=== PATIENT | male | born 1980 | race Caucasian/White ===

== ENCOUNTER 2018-10-26 12:46 | Inpatient (IN) | payer BC ==
[~2018-10-26] VITALS: Ht 180.3 cm; Wt 112.9 kg
[2018-10-26] VITALS (11 sets, daily range): BP systolic 128–177; BP diastolic 72–93
--- NOTE | 2018-10-26 13:00 | NUR ---
CAME FROM DR LUNA OFFICE FOR EVAL OF HIS RECTAL ABSCESS. IV STARTED BLOOD SEND TO LAB
[2018-10-26] MEDS ORDERED: Isovue-300 100ml vial INJ PRN (13:15)
[2018-10-26] MEDS ORDERED: Piperacillin/Tazobactam 3.375 GM in NS 110 ML IVPB ONE (13:15)
--- NOTE | 2018-10-26 13:59 | Pre-Procedure Note/Attestation ---
Pre-Procedure Note/Attestation Complete Prior to Procedure Procedure Narrative: Examination Under Anesthesia, incision and drainage of jose maria-rectal abscess, possible drain placement. Indications for Procedure Pre-Operative Diagnosis: jose maria-rectal abscess Attestation I attest that I discussed the nature of the procedure; its benefits; risks and complications; and alternatives (and the risks and benefits of such alternatives ), prior to the procedure, with the patient (or the patient's legal loan servicing representative). I attest that, if there was a reasonable possibility of needing a blood transfusion, the patient (or the patient's legal loan servicing representative) was given the [facility] standardized written summary, pursuant to the Christophe Carol Blood Safety Act ([place] Health and Safety Code # 1645, as amended). I attest that I re-evaluated the patient just prior to the surgery and that there has been no change in the patient's H&P, except as documented below: Reynaldo Samano October 26, 2018 13:59
--- NOTE | 2018-10-26 13:59 | Consultation ---
History of Present Illness General Date patient seen: October 26, 2018 Reason for Hospitalization: Skin Rash/Abscess Present Illness HPI 37 year old otherwise healthy male who is well known to me presented with recurrent magy-anal abscess. Patient first seem in Dr. Pedro's office last year for magy-rectal abscess s/p Incision and drainage. Did well and wound was cared for by myself until healed. Has since been okay until 5-6 days ago when began to have similar symptoms. Chicken magy-anal discomfort, noted some drainage , noted discomfort, and mild blood after BM. Waited a few days and as did not improve came in for evaluation. Seen in office today and when noted to be uncomfortable and with duration and size and location recommended to come to ED. No n/v/f/c. pain sharp and worsening. on exam had tenderness and deep fluctuance. Allergies: Coded Allergies: No Known Allergies (Unverified , 10/26/18) Patient History Healthcare decision maker Resuscitation status Advanced Directive on File Review of Systems Review of Symptoms General ROS: no weight loss or fever Psychological ROS: no depression or mood changes, no memory loss Ophthalmic ROS: no visual changes or eye irritation ENT ROS: no nasal congestion, hearing loss, dizziness Allergy and Immunology ROS: no allergic symptoms or urticaria Hematological and Lymphatic ROS: no swollen glands, unusual bleeding or bruising Endocrine ROS: no polyuria, polydipsia, weight changes, temperature intolerance Respiratory ROS: no cough, shortness of breath, or wheezing Cardiovascular ROS: no chest pain or dyspnea on exertion Gastrointestinal ROS: denies abdominal pain, bright red blood in stool. Musculoskeletal ROS: no myalgias or arthralgias Neurological ROS: no TIA or stroke symptoms Dermatological ROS: no new or changing skin lesions, rashes or pruritis Physical Exam Physical Exam General appearance: alert, cooperative, no distress, appears stated age Head: Normocephalic, without obvious abnormality, atraumatic Eyes: conjunctivae/corneas clear. PERRL, EOM's intact. Fundi benign Throat: Lips, mucosa, and tongue normal. Teeth and gums normal Neck: supple, symmetrical, trachea midline, no adenopathy, thyroid: not enlarged, symmetric, no tenderness/mass/nodules, no carotid bruit and no JVD Lungs: clear to auscultation bilaterally Heart: regular rate and rhythm, S1, S2 normal, no murmur, click, rub or gallop Abdomen: soft, non-tender. Bowel sounds normal. No masses, no organomegaly Extremities: extremities normal, atraumatic, no cyanosis or edema Pulses: 2+ and symmetric Skin: Skin color, texture, turgor normal. No rashes or lesions Neurologic: Grossly normal RECTAL: anoscopy performed and pain noted but no blood noted. left magy-rectal area with well healed prior scar noted. fluctuance, no drainage, tender, much larger then prior. Last 24 Hour Vital Signs Date Time Temp Pulse Resp B/P (MAP) Pulse Ox O2 Delivery O2 Flow Rate FiO2 10/26/18 12:52 98.1 78 16 98 Room Air Height (Feet): 6 Weight (Pounds): 195 Medications Current Medications Medications (Trade) Dose Ordered Sig/Juan Route PRN Reason Start Time Stop Time Status Last Admin Dose Admin Iopamidol (Isovue-300 100ml) 100 ml NOW PRN INJ Radiology Procedure 10/26/18 13:15 Sodium Chloride 1,000 ml @ 999 mls/hr Q1H1M IV 10/26/18 13:02 10/26/18 14:02 Assessment/Plan Problem List: (1) Magy-rectal abscess Assessment & Plan: 37M with magy-rectal abscess. afebrile, HD stable. labs pending need CT to ensure not deeper or other abnormality as this is second one in a year in same location but no fistula noted externally. larger then prior. unable to do in office given limitations and complexity. leukocytosis ct w/ Left perianal abscess measuring approximately 2.5 x 1.7 x 3 cm. Underlying fistulous connection likely. admit for IV Abx OR today for I&D after imaging completed consent thank you ICD Codes: K61.1 - Rectal abscess SNOMED: [id number] MtmarieReynaldo October 26, 2018 13:59
[2018-10-26 14:23] LABS: BASOPHILS % (AUTO) 0.4 % (0.0-2.0); EOSINOPHILS % (AUTO) 1.4 % (0.0-3.0); HEMATOCRIT 46.9 % (42.0-52.0); HEMOGLOBIN 15.5 G/DL (14.2-18.0); LYMPHOCYTES % (AUTO) 12.7 % (20.0-45.0); MEAN CORPUSCULAR VOLUME 89 FL (80-99); MONOCYTES % (AUTO) 6.8 % (1.0-10.0); NEUTROPHILS % (AUTO) 78.7 % (45.0-75.0); PLATELET COUNT 283 K/UL (150-450); RED BLOOD COUNT 5.28 M/UL (4.70-6.10); RED CELL DISTRIBUTION WIDTH 12.8 % (11.6-14.8); WHITE BLOOD COUNT 17.7 K/UL (4.8-10.8)
--- NOTE | 2018-10-26 14:24 | Diagnostic Imaging Report ---
Indication: Chest pain. Technique: XRAY Chest 1v Comparison: None Findings: Heart size and mediastinal contours are within normal limits for AP technique. Symmetric haziness of portions of the lower lungs bilaterally related to attenuation from overlying soft tissues. There is no focal airspace consolidation, pneumothorax or pleural effusion. Osseous structures demonstrate no acute abnormality. Impression: No radiographic evidence of acute cardiopulmonary disease.
[2018-10-26] MEDS ORDERED: Morphine Sulfate 4mg/ml Inj (IV USE ONLY) IVP ONE (14:30)
--- NOTE | 2018-10-26 14:30 | Emergency Room Report ---
History of Present Illness General Chief Complaint: Skin Rash/Abscess Source: Patient Present Illness HPI 37-year-old male presents ED for evaluation. Patient referred to ED for rectal pain. History of perirectal abscess and has had surgery previously. States he' s having recurrent pain and drainage from that site x 1 week. Pain is throbbing , 8 out of 10, nonradiating. Denies fevers or chills. No other aggravating relieving factors. Denies any other associated symptoms Allergies: Coded Allergies: No Known Allergies (Unverified , 10/26/18) Patient History Past Medical History: none Past Surgical History: none Pertinent Family History: none Social History: Denies: smoking, alcohol use, drug use Immunizations: UTD Reviewed Nursing Documentation: PMH: Agreed; PSxH: Agreed Review of Systems All Other Systems: negative except mentioned in HPI Physical Exam Vital Signs Date Time Temp Pulse Resp B/P (MAP) Pulse Ox O2 Delivery O2 Flow Rate FiO2 10/26/18 12:52 98.1 78 16 98 Room Air 10/26/18 14:17 130/80 Sp02 EP Interpretation: reviewed, normal General Appearance: no apparent distress, alert, GCS 15, non-toxic Head: normocephalic, atraumatic Eyes: bilateral eye normal inspection, bilateral eye PERRL ENT: hearing grossly normal, normal pharynx, no angioedema, normal voice Neck: full range of motion, supple/symm/no masses Respiratory: chest non-tender, lungs clear, normal breath sounds, speaking full sentences Cardiovascular #1: regular rate, rhythm, no edema Cardiovascular #2: 2+ carotid (R), 2+ carotid (L), 2+ radial (R), 2+ radial (L) , 2+ dorsalis pedis (R), 2+ dorsalis pedis (L) Gastrointestinal: normal bowel sounds, non tender, soft, non-distended, no guarding, no rebound Rectal: tenderness - erythema/induration L perirectal area. no fluctuance or discharge Genitourinary: normal inspection, no CVA tenderness Musculoskeletal: back normal, gait/station normal, normal range of motion, non- tender Neurologic: alert, oriented x3, responsive, motor strength/tone normal, sensory intact, speech normal Psychiatric: judgement/insight normal, memory normal, mood/affect normal, no suicidal/homicidal ideation Reflexes: 3+ bicep (R), 3+ bicep (L), 3+ tricep (R), 3+ tricep (L), 3+ knee (R) , 3+ knee (L) Skin: normal color, no rash, warm/dry, well hydrated Lymphatic: no adenopathy Medical Decision Making Diagnostic Impression: Primary Impression: Magy-rectal abscess ER Course Hospital Course 37 yo M presents to ED with fluctuance/paint to rectal area Differential diagnoses include: cellulitis, abscess, fistula Clinical course Patient placed on stretcher. conveyor monitor. After initial history and physical I ordered labs, IV fluids, UA, pain medication and CT scan Labs - noted leukocytosis, Hb/Hct ok, electrolytes ok EKG - NSR, no acute ischemic changeds interpreted by me CXR unremarkable CT abdomen and pelvis - L perirectal abscess noted Dr. Samano made aware of results; preoperative abx given patient made nothing by mouth and patient will be taken to OR Case discussed with Dr. Brand and he agreed to accept the patient to his service for further care and support I feel this is a highly complex case requiring extensive working including EKG/ Rhythm strip, Xray/CT/US, Blood/urine lab work, repeat exams while in ED, and administration of strong opiates/narcotics for pain control, admission to hospital or close patient follow up. Diagnosis - perirectal abscess Patient admitted to floor in serious condition Labs Test 10/26/18 13:40 10/27/18 05:33 Prothrombin Time 10.4 SEC (9.30-11.50) Prothromb Time International Ratio 1.0 (0.9-1.1) Activated Partial Thromboplast Time 32 SEC (23-33) Lactic Acid Level 1.00 mmol/L (0.4-2.0) Total Bilirubin 0.6 MG/DL (0.2-1.0) Aspartate Amino Transf (AST/SGOT) 24 U/L (15-37) Alanine Aminotransferase (ALT/SGPT) 21 U/L (12-78) Alkaline Phosphatase 46 U/L (46-116) Total Protein 7.8 G/DL (6.4-8.2) Albumin 3.9 G/DL (3.4-5.0) Globulin 3.9 g/dL Albumin/Globulin Ratio 1.0 (1.0-2.7) White Blood Count 13.6 K/UL (4.8-10.8) Red Blood Count 5.15 M/UL (4.70-6.10) Hemoglobin 15.3 G/DL (14.2-18.0) Hematocrit 45.9 % (42.0-52.0) Mean Corpuscular Volume 89 FL (80-99) Mean Corpuscular Hemoglobin 29.7 PG (27.0-31.0) Mean Corpuscular Hemoglobin Concent 33.3 G/DL (32.0-36.0) Red Cell Distribution Width 13.0 % (11.6-14.8) Platelet Count 263 K/UL (150-450) Mean Platelet Volume 8.1 FL (6.5-10.1) Neutrophils (%) (Auto) 81.4 % (45.0-75.0) Lymphocytes (%) (Auto) 10.6 % (20.0-45.0) Monocytes (%) (Auto) 6.3 % (1.0-10.0) Eosinophils (%) (Auto) 1.4 % (0.0-3.0) Basophils (%) (Auto) 0.3 % (0.0-2.0) Sodium Level 135 MMOL/L (136-145) Potassium Level 4.2 MMOL/L (3.5-5.1) Chloride Level 101 MMOL/L (98-107) Carbon Dioxide Level 25 MMOL/L (21-32) Anion Gap 9 mmol/L (5-15) Blood Urea Nitrogen 7 mg/dL (7-18) Creatinine 0.9 MG/DL (0.55-1.30) Estimat Glomerular Filtration Rate > 60 mL/min (>60) Glucose Level 73 MG/DL (74-106) Calcium Level 8.6 MG/DL (8.5-10.1) EKG Diagnostic Results Rate: normal Rhythm: NSR ST Segments: no acute changes ASA given to the pt in ED: No Rhythm Strip Diag. Results EP Interpretation: yes Rhythm: NSR, no PVC's Chest X-Ray Diagnostic Results Chest X-Ray Diagnostic Results : Chest X-Ray Ordered: Yes # of Views/Limited/Complete: 1 View Indication: Other EP Interpretation: Yes Interpretation: no consolidation, no effusion, no pneumothorax, no acute cardiopulmonary disease Impression: No acute disease Electronically Signed by: Electronically signed by Joseph Simms MD CT/MRI/US Diagnostic Results CT/MRI/US Diagnostic Results : Imaging Test Ordered: CT A/P Impression Left perianal abscess measuring approximately 2.5 x 1.7 x 3 cm. Underlying fistulous connection likely. Last Vital Signs Date Time Temp Pulse Resp B/P (MAP) Pulse Ox O2 Delivery O2 Flow Rate FiO2 10/26/18 14:17 98.0 82 18 130/80 98 Room Air Status: improved Disposition: ADMITTED INPATIENT Condition: Serious Scripts No Active Prescriptions or Reported Meds Referrals: Hakan Pedro MD (PCP) Joseph Simms MD October 26, 2018 14:30
[2018-10-26 14:34] LABS: ANION GAP 9 mmol/L (5-15); BLOOD UREA NITROGEN 11 mg/dL (7-18); CALCIUM 9.1 MG/DL (8.5-10.1); CARBON DIOXIDE 27 MMOL/L (21-32); CHLORIDE 101 MMOL/L (98-107); CREATININE 1.1 MG/DL (0.55-1.30); POTASSIUM 3.8 MMOL/L (3.5-5.1); SODIUM 137 MMOL/L (136-145)
[2018-10-26 14:38] LABS: ALANINE AMINOTRANSFERASE 21 U/L (12-78); ALBUMIN 3.9 G/DL (3.4-5.0); ALKALINE PHOSPHATASE 46 U/L (46-116); ASPARTATE AMINO TRANSFERASE 24 U/L (15-37); BILIRUBIN,TOTAL 0.6 MG/DL (0.2-1.0)
--- NOTE | 2018-10-26 14:52 | NUR ---
PAIN MEDS GIVEN TO CT SCAN VIA GURTRACY
--- NOTE | 2018-10-26 15:24 | Diagnostic Imaging Report ---
Indication: Abdominal pain Technique: CT of the abdomen and pelvis utilizing automated exposure control with intravenous contrast. Venous scanning performed. Axial, sagittal and coronal reformats presented. CT dose: Total DLP 1048.28 mGycm; CTDI vol 18.16 mGy Comparison: None Findings: Minimal dependent atelectatic changes noted in the posterior lower lobes bilaterally. Heart size within normal limits. There is no pericardial effusion. Liver is mildly enlarged with the right hepatic lobe measuring 20 cm in crown correlate. Hepatic contour is smooth. No focal hepatic mass lesion is appreciated on this single phase exam. Hepatic veins and portal veins appear patent. Gallbladder is unremarkable, without CT evident gallstones or pericholecystic inflammatory changes. No biliary ductal dilatation. Spleen is mildly enlarged measuring 13 cm in length. Adrenal glands and pancreas unremarkable. Kidneys enhance symmetrically. A punctate nonobstructing stone is noted in the midpole of the right kidney (series 3 image #38). There is no hydronephrosis or perinephric stranding bilaterally. Bladder is unremarkable. Seminal vesicles and prostate unremarkable. There is no free intraperitoneal air. No free peritoneal fluid is identified. There is no evidence of bowel obstruction. No definite inflammatory changes noted within the mesentery. No evidence of appendicitis. Abdominal aorta is normal in caliber. There is skin thickening of the left gluteal cleft. There is subcutaneous stranding. There is also a left perianal abscess that measures approximately 2.5 cm AP by 1.7 cm transverse and approximately 3 cm craniocaudal. This contains some foci of air. There is suggestion of underlying fistulous connection (series 5 image #40). No acute osseous abnormality is identified. IMPRESSION: Left perianal abscess measuring approximately 2.5 x 1.7 x 3 cm. Underlying fistulous connection likely. Punctate subcentimeter stone in the midpole of the right kidney. No evidence of hydronephrosis or other evidence to suggest obstructive uropathy. Mild hepatosplenomegaly. The CT scanner at [facility] is accredited by the [employer] and the scans are performed using protocols designed to limit radiation exposure to as low as reasonably achievable to attain images of sufficient resolution adequate for diagnostic evaluation.
--- NOTE | 2018-10-26 16:15 | NUR ---
ED Nurse Note: ivf and pain meds well tolerated pre-op chaeck list belongings list done. pt down to OR via transporter.
[2018-10-26] MEDS ORDERED: LR 1000ml 1,000 ML IVLG SCH (17:20)
--- NOTE | 2018-10-26 17:26 | Anethesia Preoperative Eval ---
Anesthesia Pre-op PMH/ROS General Date of Evaluation: October 26, 2018 Time of Evaluation: 17:27 Anesthesiologist: Isidro ASA Score: ASA 2 Mallampati Score Class I : Soft palate, uvula, fauces, pillars visible Class II: Soft palate, uvula, fauces visible Class III: Soft palate, base of uvula visible Class IV: Only hard plate visible Mallampati Classification: Class II Surgeon: Selwyn Diagnosis: Rectal Abscess Surgical Procedure: I&D Rectal Abscess Anesthesia History: none Family History: no anesthesia problems Allergies: Coded Allergies: No Known Allergies (Unverified , 10/26/18) Medications: see eMAR Patient NPO?: Yes Past Medical History Cardiovascular: Reports: HTN Other: obesity - BMI 35 Anesthesia Pre-op Phys. Exam Physician Exam Last Vital Signs Date Time Temp Pulse Resp B/P (MAP) Pulse Ox O2 Delivery O2 Flow Rate FiO2 10/26/18 16:20 98.0 10/26/18 16:16 78 18 128/76 99 Room Air Constitutional: NAD Neurologic: CN 2-12 intact Cardiovascular: RRR Respiratory: CTA Gastrointestinal: S/NT/ND Airway Exam Mallampati Score: Class II MO: full ROM: full Teeth: intact Anesthesia Pre-op A/P Labs Hematology Test 10/26/18 13:40 White Blood Count 17.7 K/UL (4.8-10.8) H Red Blood Count 5.28 M/UL (4.70-6.10) Hemoglobin 15.5 G/DL (14.2-18.0) Hematocrit 46.9 % (42.0-52.0) Mean Corpuscular Volume 89 FL (80-99) Mean Corpuscular Hemoglobin 29.4 PG (27.0-31.0) Mean Corpuscular Hemoglobin Concent 33.1 G/DL (32.0-36.0) Red Cell Distribution Width 12.8 % (11.6-14.8) Platelet Count 283 K/UL (150-450) Mean Platelet Volume 8.0 FL (6.5-10.1) Neutrophils (%) (Auto) 78.7 % (45.0-75.0) H Lymphocytes (%) (Auto) 12.7 % (20.0-45.0) L Monocytes (%) (Auto) 6.8 % (1.0-10.0) Eosinophils (%) (Auto) 1.4 % (0.0-3.0) Basophils (%) (Auto) 0.4 % (0.0-2.0) Coagulation Test 10/26/18 13:40 Prothrombin Time 10.4 SEC (9.30-11.50) Prothromb Time International Ratio 1.0 (0.9-1.1) Activated Partial Thromboplast Time 32 SEC (23-33) Chemistry Test 10/26/18 13:40 Sodium Level 137 MMOL/L (136-145) Potassium Level 3.8 MMOL/L (3.5-5.1) Chloride Level 101 MMOL/L (98-107) Carbon Dioxide Level 27 MMOL/L (21-32) Anion Gap 9 mmol/L (5-15) Blood Urea Nitrogen 11 mg/dL (7-18) Creatinine 1.1 MG/DL (0.55-1.30) Estimat Glomerular Filtration Rate > 60 mL/min (>60) Glucose Level 81 MG/DL (74-106) Lactic Acid Level 1.00 mmol/L (0.4-2.0) Calcium Level 9.1 MG/DL (8.5-10.1) Total Bilirubin 0.6 MG/DL (0.2-1.0) Aspartate Amino Transf (AST/SGOT) 24 U/L (15-37) Alanine Aminotransferase (ALT/SGPT) 21 U/L (12-78) Alkaline Phosphatase 46 U/L (46-116) Total Protein 7.8 G/DL (6.4-8.2) Albumin 3.9 G/DL (3.4-5.0) Globulin 3.9 g/dL Albumin/Globulin Ratio 1.0 (1.0-2.7) Risk Assessment & Plan Assessment: ASA 2 Plan: GA Status Change Before Surgery: No Pre-Antibiotics Drug: Given Imer Felix MD October 26, 2018 17:26
[2018-10-26] MEDS ORDERED: LR 1000ml ONE (17:30)
[2018-10-26] MEDS ORDERED: fentaNYL 100 mcg/2 mL IV PRN (17:30)
[2018-10-26] MEDS ORDERED: LORazepam Inj 2mg/ml 1ml IV PRN (17:30)
[2018-10-26] MEDS ORDERED: Metoclopramide 10mg/2ml Inj IVP PRN (17:30)
[2018-10-26] MEDS ORDERED: Atropine Sulfate 0.4mg/ml inj IVP PRN (17:30)
[2018-10-26] MEDS ORDERED: Lidocaine 1% MPF 10mg/ml 5ml ONE ×2 (17:30→18:05)
[2018-10-26] MEDS ORDERED: Meperidine 50mg/ml Inj(FOR RIGORS ONLY) IVP PRN (17:30)
[2018-10-26] MEDS ORDERED: Midazolam 2mg/2ml Inj IVP PRN (17:30)
[2018-10-26] MEDS ORDERED: HYDROcodone/Acetamin 5/325 tab ORAL PRN (17:30)
[2018-10-26] MEDS ORDERED: Hydromorphone 0.5mg/0.5ml inj IVP PRN ×2 (17:30→18:30)
[2018-10-26] MEDS ORDERED: Acetaminophen (Non formulary) 100 ML IV ONE (17:30)
[2018-10-26] MEDS ORDERED: Labetalol 5mg/ml 20ml vial IV PRN (17:30)
[2018-10-26] MEDS ORDERED: DiphenhydrAMINE 50mg/ml Inj IVP PRN (17:30)
[2018-10-26] MEDS ORDERED: Ketorolac 30mg Inj IV PRN ×3 (17:30→18:30)
[2018-10-26] MEDS ORDERED: HYDROcodone/Acetamin 7.5/325 tab ORAL PRN (17:30)
[2018-10-26] MEDS ORDERED: oxyCODONE HCL/Acetaminophen 5/325mg ORAL PRN (17:30)
[2018-10-26] MEDS ORDERED: Sodium Chloride 10ml vial INJ ONE (17:38)
[2018-10-26] MEDS ORDERED: Hydrogen Peroxide 473ml Bottle TOPIC ONE (17:50)
--- NOTE | 2018-10-26 17:55 | Immediate Post-Op Evaluation ---
Immediate Post-Op Evalulation Immediate Post-Op Evalulation Procedure: I&D Rectal Abscess Date of Evaluation: October 26, 2018 Time of Evaluation: 18:37 IV Fluids: 800 LR Blood Products: 0 Estimated Blood Loss: 25 Urinary Output: 0 Blood Pressure Systolic: 143 Blood Pressure Diastolic: 78 Pulse Rate: 102 Respiratory Rate: 16 O2 Sat by Pulse Oximetry: 100 Temperature (Fahrenheit): 98.2 Pain Score (1-10): 2 Nausea: No Vomiting: No Complications 0 Patient Status: awake, reacts, patent, none Hydration Status: adequate Drug: Given Imer Felix MD October 26, 2018 17:55
[2018-10-26] MEDS ORDERED: Propofol 200mg/20ml IV ONE (18:05)
--- NOTE | 2018-10-26 18:23 | Brief Operative Note ---
Immediate Post Operative Note Operative Note Pre-op Diagnosis: jose maria-rectal abscess Procedure: 1. examination under anesthesia 2. incision and drainage of jose maria-rectal abscess 3. mucosal advancement flap for repair of anal fistula 4. rigid proctosigmoidoscopy Post-op Diagnosis: 1. jose maria-rectal abscess 2. anal fistula Surgeon: aric Anesthesiologist: jazzy Anesthesia: local, moderate sedation Specimen: yes Complications: none Condition: stable Fluids: see records Estimated Blood Loss: minimal Drains: none Implant(s) used?: No Reynaldo Samano October 26, 2018 18:23
[2018-10-26] MEDS ORDERED: HYDROcodone/Acetamin 10/325 tab ORAL PRN (18:30)
[2018-10-26] MEDS ORDERED: Sennosides 8.6mg tab ORAL PRN (18:30)
[2018-10-26] MEDS ORDERED: HYDROmorphone 1mg/ml Carpuject IVP PRN (18:30)
[2018-10-26] MEDS ORDERED: Milk of Magnesia 30ml Ud ORAL PRN (18:30)
[2018-10-26] MEDS ORDERED: Lidocaine 1% 10mg/ml/Epi 0.005mg/ml 30ml vial INJ ONE (19:15)
[2018-10-26] MEDS ORDERED: Bacitracin 50000 Units Vial ONE (19:15)
[2018-10-26] MEDS: Heparin 5000 units/ml inj SUBQ SCH (22:05)
[2018-10-26] MEDS: Piperacillin/Tazobactam 3.375 GM in NS 110 ML IVPB SCH (22:59)
[2018-10-26] MEDS: HYDROcodone/Acetamin 5/325 tab ORAL PRN (23:00)
[2018-10-27] VITALS: BP 122/72
--- NOTE | 2018-10-27 03:15 | Operative Note - Dictated ---
DATE OF OPERATION: 10/26/2018 PREOPERATIVE DIAGNOSIS: Perirectal abscess. POSTOPERATIVE DIAGNOSES: 1. Perirectal abscess. 2. Anterior midline anal fistula. OPERATION PERFORMED: 1. Examination under anesthesia. 2. Incision and drainage of perirectal abscess. 3. Mucosal advancement flap for repair of perianal fistula. 4. Rigid proctosigmoidoscopy. ATTENDING SURGEON: Reynaldo Samano M.D. FIELD CLINICAL ENGINEER: None. ANESTHESIOLOGIST: Imer Felix M.D. ANESTHESIA: Moderate sedation with local. ESTIMATED BLOOD LOSS: Minimal. IV FLUIDS: Please see anesthesia records. COMPLICATIONS: None. DRAINS: None. SPECIMENS: Cultures taken for microbiology. COUNTS: Sponge and needle count correct x2. DRAINS: None. DRESSINGS: Iodoform packing and gauze dressing. WOUND CLASSIFICATION: Class III. ANTIBIOTICS: The patient was given intravenous antibiotics one hour prior to cut time. INDICATIONS FOR PROCEDURE: The patient is a very pleasant 37-year-old male, who was initially seen by myself approximately 101 1 year ago for a perirectal abscess which incised, drained, and cared for until fully healed. He has been doing well for the past year, but states that over the past 5 to 6 days, began to develop pain in the very similar area and discomfort. He identified some drainage that seemed purulent and foul in nature and came in to the office for evaluation at which time, he was identified to have a fairly large tender jose maria rectal abscess which given examination, duration, and complexity required higher level of care and the patient was told to go to the emergency department, at which time, he was seen in the emergency department, noted to have a leukocytosis 17,000, and CT scan consistent with a left perianal abscess with likely fistula being identified. Given these findings, surgery was indicated and recommended. The patient was taken to the operating room for examination under anesthesia plus incision and drainage of the abscess and drain or repair if necessary. The patient expressed understanding after all risks, benefits, and alternatives were discussed and consented to surgery which was being performed. Preoperatively, I discussed the patient's CT findings and the potential that he may have a fistula that required repair and repair will be performed as necessary with either fistulectomy and/or more advanced flap technique if necessary as well as seton drain placement. The patient expressed understanding and consented to procedure. OPERATIVE NOTE: The patient was taken to the operating room and placed on the operating table in the prone position. All bony prominences were well padded. Preoperative time-out taken in identifying the patient, procedure, operative staff, and surgical staff. The patient was given IV antibiotics one hour prior to cut time. The patient was made comfortable in prone jackknife position and anesthesiologist provided moderate sedation for the patient's comfort under direct monitoring. The anus was prepped and draped in standard surgical fashion utilizing tape for anal exposure. We began by first inserting a rigid proctosigmoidoscopy to evaluate for any abnormalities. The patient had a poor prep and the portions of the sigmoid and rectum that could be identified were otherwise normal. Right at the level of the anus/anorectal junction in the anterior near midline. Upon palpation of the patient's palpable area of cellulitis and perirectal abscess, was identified to be deep. There was purulent drainage from a notable fistula tract. Fistula tract was around the level of the dentate line and within a of morgagni and mucosal folds. At this time, the area of abscess was identified around the level of patient's prior incision and drainage abscess site. Initially, local anesthetic was infiltrated for a perianal block as well as for the skin incision. The initial skin incision was made using a fresh scalpel over the prior skin incision from the prior surgery. In doing this, the skin incision was taken down through the dermis and to the subcutaneous tissue, but given the prior scar tissue healing, this area of abscess cavity was not easily identifiable and more palpable fluctuance was identified inferiorly. A second incision was made approximately 1.5 cm inferior to the initial incision at which time following an incision, purulent fecal matter was evacuated. This was cultured and sent to microbiology for review. Once this was completed, the abscess cavity was inspected and noted to be approximately 3 to 4 cm deep and 3 to 4 cm circumferentially in the size of golf ball. The abscess cavity was tunneled to the more superior incision to allow for better drainage through the both incisions. Following this, hydrogen peroxide was infiltrated through the abscess cavity site and identified coming out of the prior identified fistula. A few attempts were made to identify the fistula tract, but given the size of the abscess cavity and compared to the location, a direct fistula tract was not easily identifiable and given the patient's perirectal abscess being formed outside without a external connection and the patient's prior incision and drainage with scar tissue. A direct fistula tract could not be identified and a false tract was not recommend to be created and therefore, given the complexity and the patient's desire for definitive treatment, a decision was made to proceed with anorectal mucosal advancement flap over the fistula for definitive treatment followed by incision and drainage of this abscess cavity. The fistula site in the anterior near midline into the left was noted. Attempts were made to cannulate and identify the tract to the abscess cavity, but could not be made in dissecting a false tract. We began creating the mucosal advancement flap. An incision was made just inferior to the fistula opening and a flap was created over the fistula. The fistula was easily identified and the area around the fistula incision itself were cauterized. Following this, the mucosa advancement flap was undermined superiorly and then brought over and sutured to the inferior flap using 3-0 Vicryl sutures. A good reapproximation was identified and fistula tract was covered appropriately. Following this, the wounds were irrigated and cleansed with antibiotic saline and the abscess cavity packed with iodoform followed by a gauze dressing. The patient tolerated the procedure well and was then awakened and taken to the postanesthetic care unit in stable condition. Reynaldo Samano M.D. DR: KARINA JOB#: [id number] CC: MELA
--- NOTE | 2018-10-27 03:30 | History and Physical Report ---
DATE OF ADMISSION: 10/26/2018 CHIEF COMPLAINT: Perirectal abscess. HISTORY OF PRESENT ILLNESS: The patient is a 37-year-old male. He has a prior history of a rectal fistula. He has had prior surgeries, but has had worsening pain and discharge. He was seen by his surgeon, who was concerned that the patient developed perirectal abscess and recommended that he go to the emergency room. According to the patient, he has otherwise been doing well. He has had no fevers or chills. No chest pain, but he has had worsening pain with purulent discharge from the rectal area. PAST MEDICAL HISTORY: None. PAST SURGICAL HISTORY: Includes recent sutures after a fall. CURRENT MEDICATIONS: Reconciled and reviewed. ALLERGIES: None. FAMILY HISTORY: None. SOCIAL HISTORY: Negative for tobacco, ethanol, or drug use. REVIEW OF SYSTEMS: Negative except for rectal pain. PHYSICAL EXAMINATION: VITAL SIGNS: Temperature 98 degrees, blood pressure 156/93, pulse 91, and respirations 20. GENERAL: The patient is a well-developed male, in no apparent distress. HEART: Regular rate and rhythm. LUNGS: Clear. ABDOMEN: Soft, nontender, and nondistended. EXTREMITIES: Without clubbing, cyanosis, or edema. There is induration and swelling and pain with palpation over the perirectal region on the right buttock. LABORATORY DATA: White count was 18,000. Sodium 137 and potassium is 3.8. ASSESSMENT: This is a pleasant male, admitted with a perirectal abscess. He is medically stable and appears nontoxic. He is stable for surgery. A perioperative risk is average for his age and sex would proceed. Recommend broad-spectrum antibiotics and following up cultures. The patient's surgeon, Dr. Samano will follow up and schedule the patient for surgery . He is stable. Ventura Brand M.D. DR: HARPREET JOB#: [id number] CC:
[2018-10-27 04:00] VITALS: BP 130/84
[2018-10-27] MEDS: Piperacillin/Tazobactam 3.375 GM in NS 110 ML IVPB SCH (05:52)
[2018-10-27] MEDS: Heparin 5000 units/ml inj SUBQ SCH (05:52)
[2018-10-27] MEDS: HYDROcodone/Acetamin 5/325 tab ORAL PRN (06:02)
[2018-10-27 07:17] LABS: BASOPHILS % (AUTO) 0.3 % (0.0-2.0); EOSINOPHILS % (AUTO) 1.4 % (0.0-3.0); HEMATOCRIT 45.9 % (42.0-52.0); HEMOGLOBIN 15.3 G/DL (14.2-18.0); LYMPHOCYTES % (AUTO) 10.6 % (20.0-45.0); MEAN CORPUSCULAR VOLUME 89 FL (80-99); MONOCYTES % (AUTO) 6.3 % (1.0-10.0); NEUTROPHILS % (AUTO) 81.4 % (45.0-75.0); PLATELET COUNT 263 K/UL (150-450); RED BLOOD COUNT 5.15 M/UL (4.70-6.10); WHITE BLOOD COUNT 13.6 K/UL (4.8-10.8)
--- NOTE | 2018-10-27 07:35 | NUR ---
HAND-OFF: Report given to Jabier Pimentel RN.
[2018-10-27 07:39] LABS: ANION GAP 9 mmol/L (5-15); BLOOD UREA NITROGEN 7 mg/dL (7-18); CALCIUM 8.6 MG/DL (8.5-10.1); CARBON DIOXIDE 25 MMOL/L (21-32); CHLORIDE 101 MMOL/L (98-107); CREATININE 0.9 MG/DL (0.55-1.30); POTASSIUM 4.2 MMOL/L (3.5-5.1); SODIUM 135 MMOL/L (136-145)
--- NOTE | 2018-10-27 07:50 | NUR ---
NURSE NOTES: Received patient on bed, awake. IV site intact and patent. Dressing dry and intact. Bed in low and locked position, call light in reach. No signs of respiratory distress or pain. Room board updated, will continue to monitor.
[2018-10-27 08:00] VITALS: BP 133/85
--- NOTE | 2018-10-27 08:09 | General Progress Note ---
Assessment/Plan Problem List: (1) Magy-rectal abscess ICD Codes: K61.1 - Rectal abscess SNOMED: 60563997 Status: stable Assessment/Plan: abx follow up cultures pain rx wound care per surgery Subjective ROS Limited/Unobtainable: No Constitutional: Reports: no symptoms HEENT: Reports: no symptoms Cardiovascular: Reports: no symptoms Respiratory: Reports: no symptoms Gastrointestinal/Abdominal: Reports: no symptoms Genitourinary: Reports: no symptoms Neurologic/Psychiatric: Reports: no symptoms Endocrine: Reports: no symptoms Hematologic/Lymphatic: Reports: no symptoms Allergies: Coded Allergies: No Known Allergies (Unverified , 10/26/18) All Systems: reviewed and negative except above Subjective rectal pain. s/p I and D Objective Last 24 Hour Vital Signs Date Time Temp Pulse Resp B/P (MAP) Pulse Ox O2 Delivery O2 Flow Rate FiO2 10/27/18 06:32 98.6 10/27/18 04:00 98.6 80 16 130/84 (99) 98 10/27/18 00:00 98.5 93 16 122/72 (89) 99 10/26/18 21:00 Room Air 10/26/18 20:21 Room Air 10/26/18 20:00 98.1 91 16 156/93 (114) 97 10/26/18 19:22 98.0 88 20 165/85 99 Room Air 10/26/18 19:15 84 15 177/82 99 Room Air 10/26/18 19:00 85 19 160/84 98 Room Air 10/26/18 18:55 89 15 155/79 97 Room Air 10/26/18 18:50 89 15 159/85 100 Room Air 10/26/18 18:40 92 18 174/88 99 Room Air 10/26/18 18:30 94 15 161/89 100 Room Air 10/26/18 18:26 99.6 103 16 143/72 100 Room Air 10/26/18 18:25 102 16 100 10/26/18 16:20 98.0 10/26/18 16:16 98.0 78 18 128/76 99 Room Air 10/26/18 16:13 98.0 78 18 128/76 99 Room Air 10/26/18 14:17 98.0 82 18 130/80 98 Room Air 10/26/18 12:52 98.1 78 16 98 Room Air Intake and Output 10/26/18 10/27/18 18:59 06:59 Intake Total 1000 ml 210.0 ml Output Total 1110 ml Balance 1000 ml -900.0 ml Intake IV Total 1000 ml 210.0 ml Output Urine Total 1100 ml Estimated Blood Loss 10 ml Laboratory Tests 10/26/18 13:40: White Blood Count 17.7H, Red Blood Count 5.28, Hemoglobin 15.5, Hematocrit 46.9 , Mean Corpuscular Volume 89, Mean Corpuscular Hemoglobin 29.4, Mean Corpuscular Hemoglobin Concent 33.1, Red Cell Distribution Width 12.8, Platelet Count 283, Mean Platelet Volume 8.0, Neutrophils (%) (Auto) 78.7H, Lymphocytes ( %) (Auto) 12.7L, Monocytes (%) (Auto) 6.8, Eosinophils (%) (Auto) 1.4, Basophils (%) (Auto) 0.4, Prothrombin Time 10.4, Prothromb Time International Ratio 1.0, Activated Partial Thromboplast Time 32, Sodium Level 137, Potassium Level 3.8, Chloride Level 101, Carbon Dioxide Level 27, Anion Gap 9, Blood Urea Nitrogen 11, Creatinine 1.1, Estimat Glomerular Filtration Rate > 60, Glucose Level 81, Lactic Acid Level 1.00, Calcium Level 9.1, Total Bilirubin 0.6, Aspartate Amino Transf (AST/SGOT) 24, Alanine Aminotransferase (ALT/SGPT) 21, Alkaline Phosphatase 46, Total Protein 7.8, Albumin 3.9, Globulin 3.9, Albumin/ Globulin Ratio 1.0 10/27/18 05:33: White Blood Count 13.6H, Red Blood Count 5.15, Hemoglobin 15.3, Hematocrit 45.9 , Mean Corpuscular Volume 89, Mean Corpuscular Hemoglobin 29.7, Mean Corpuscular Hemoglobin Concent 33.3, Red Cell Distribution Width 13.0, Platelet Count 263, Mean Platelet Volume 8.1, Neutrophils (%) (Auto) 81.4H, Lymphocytes ( %) (Auto) 10.6L, Monocytes (%) (Auto) 6.3, Eosinophils (%) (Auto) 1.4, Basophils (%) (Auto) 0.3, Sodium Level 135L, Potassium Level 4.2, Chloride Level 101, Carbon Dioxide Level 25, Anion Gap 9, Blood Urea Nitrogen 7, Creatinine 0.9, Estimat Glomerular Filtration Rate > 60, Glucose Level 73L, Calcium Level 8.6 Height (Feet): 5 Height (Inches): 11.00 Weight (Pounds): 249 General Appearance: WD/WN, alert Cardiovascular: regular rhythm Respiratory/Chest: lungs clear Abdomen: normal bowel sounds, non tender, soft, no organomegaly Edema: no edema noted Arm (L), no edema noted Arm (R), no edema noted Leg (L), no edema noted Leg (R), no edema noted Pedal (L), no edema noted Pedal (R), no edema noted Generalized Ventura Brand MD October 27, 2018 08:09
[2018-10-27] MEDS ORDERED: Docusate 100mg cap ORAL SCH (09:00)
--- NOTE | 2018-10-27 09:39 | NUR ---
*-* NO INSURANCE INFORMATION IN THE BAR TO SEND CLINICALS OR REVIEWS *-*
--- NOTE | 2018-10-27 09:45 | NUR ---
CASE MANAGEMENT:REVIEW 37 YR OLD MALE FROM HOME TO ER CC: ABSCESS SI: SARAVANAN-RECTAL ABSCESS 98.0 78 16 130/80 98% ON RA WBC+17.7 IS: IV ZOSYN 1L NS BOLUS CT ABD/PELVIS CHEST XRAY BLOOD CX : TO MED/SURG 4 EAST IS: TO SURGERY FOR I&D. MUCOSAL ADVANCEMENT FLAP FOR REPAIR OF PERIANAL FISTULA RIGID PROCTOSIGMOIDOSCOPY INTERQUAL CRITERIA MET 10/27/18 SI: POD #1 99.0 88 18 133/85 97% on ra IS: IV ZOSYN Q8HRS HEPARIN SQ Q8HRS NORCO PO Q4HRS : MED/SURG STATUS 4 EAST DCP: FROM HOME
--- NOTE | 2018-10-27 09:46 | 48 Hour Post Anesthesia Eval ---
Post Anesthesia Evaluation Procedure: I&D Rectal Abscess Date of Evaluation: October 27, 2018 Time of Evaluation: 09:45 Blood Pressure Systolic: 128 0: 54 Pulse Rate: 76 Respiratory Rate: 18 Temperature (Fahrenheit): 97.6 O2 Sat by Pulse Oximetry: 98 Airway: patent Nausea: No Vomiting: No Pain Intensity: 2 Hydration Status: adequate Cardiopulmonary Status: stable Mental Status/LOC: patient returned to baseline Follow-up Care/Observations: n/a Post-Anesthesia Complications: none Follow-up care needed: N/A Jason Hooker MD October 27, 2018 09:46
[2018-10-27 12:00] VITALS: BP 137/75
--- NOTE | 2018-10-27 14:45 | NUR ---
NURSE NOTES: Patient discharged. Personal belongings inventoried and were sent home prior to discharge with spouse. IV removed and site covered. ID band removed and disposed of. Patient kept comfortable at all times and patient needs met. Patient departed with spouse and private vehicle.
[2018-10-27] MEDS ORDERED: NS 275ml ONE (14:57)
[2018-10-27] MEDS ORDERED: Tubing IV Secondary IV ONE (14:57)
--- NOTE | 2018-10-28 11:09 | Discharge Summary ---
Discharge Summary Discharge Summary _ DATE OF ADMISSION: 10/26/2018 DATE OF DISCHARGE: 10/27/2018 DISCHARGED BY: Dr. Ventura Brand CONSULTANTS: Dr. Reynaldo Samano BRIEF HOSPITAL COURSE: Patient is a 37-year-old male, with prior history of a rectal prolapse. He had prior surgeries, but had worsening pain and discharge. He was seen by his surgeon, who was concerned that the patient developed perirectal abscess and recommended that he go to the emergency room. According to the patient, he has otherwise been doing well. He denied fever or chills. He denied chest pain. He had worsening pain and purulent discharge coming from the rectal area. On evaluation at the ED, vital signs were stable. Blood work showed WBC 17.7, otherwise, were normal. EKG showed normal sinus rhythm with no acute changes. Chest x-ray did not show any radiographic evidence of acute pulmonary disease. He was then admitted for perirectal abscess. He was started on broad-spectrum antibiotics. Surgeon was consulted. Patient had a history of perirectal abscess status post I&D last year. Patient was doing well until 5 to 6 days prior when he started to have his symptoms. He had perianal discomfort and noted discharge and mild blood after bowel movement. He waited for a few days and did not improve he then came in for evaluation. On evaluation, there was no fistula noted externally. Abscess appeared larger than prior. CT scan of the abdomen and pelvis with contrast showed left perianal abscess measuring 2.5 x 1.7 x 3 cm. He was started on Zosyn. The patient was taken to the operating room and then underwent examination under anesthesia and incision and drainage of the perirectal abscess with mucosal advancement flap for repair of perianal fistula. The patient tolerated procedure well and was taken to postanesthetic care unit in stable condition. He was given pain management. Diet was advanced. The following day, patient was afebrile. Vitals were stable. Leukocytosis was downtrending. He was cleared for discharge, to follow-up with surgeon as outpatient. FINAL DIAGNOSES: Perirectal abscess Anterior midline anal fistula OPERATION PERFORMED: 1. Examination under anesthesia. 2. Incision and drainage of perirectal abscess. 3. Mucosal advancement flap for repair of perianal fistula. 4. Rigid proctosigmoidoscopy. DISPOSITION: Patient was discharged home. DISCHARGE MEDICATIONS: No known meds. DISCHARGE INSTRUCTIONS: Follow-up in a week. I have been assigned to complete a discharge summary on this account, I was not involved with the patient's management. Christin Hill NP October 28, 2018 11:09
--- NOTE | 2018-10-28 15:37 | NUR ---
*-* INSURANCE *-* CLINICALS AND REVIEWS HAVE BEEN FAXED TO: [facility] f:[phone] rEF#[id number]
== END 2018-10-27 14:58 | disposition home or self-care (01) | DRG 358 ==
LOC: EMR 13:25 → 4E 13:27 → EDBEDREQ 13:51
PROC: 0DJD8ZZ Inspection of Lower Intestinal Tract, Via Natural or Artificial Opening Endoscopic (ICD-10-PCS; principal; 2018-10-26 15:30)
PROC: 0HX9XZZ Transfer Perineum Skin, External Approach (ICD-10-PCS; principal; 2018-10-26 15:30)
PROC: 0D9P3ZZ Drainage of Rectum, Percutaneous Approach (ICD-10-PCS; principal; 2018-10-26 15:30)
DX: K61.1 Rectal abscess (principal)
CPT/HCPCS: 36415; 71045; 74177; 80048; 80053; 83605; 85025; 85610; 85730; 86850; 86900; 86901; 87040; 87070; 87075; 87181; 87205; 93005; 94003; 94150; 96361; 96365; 96375; 99285